=== PATIENT | female | born 1950 | race Caucasian/White ===

== ENCOUNTER → 2017-01-14 | Outpatient (REF) | payer OTHER ==
[2017-01-14 14:15] LABS: CALCIUM OXALATE CRYSTALS MODERATE
== END ==
LOC: M SMT 12:45
PROVIDERS: ATTEND Nurse Practitioner Women's Health
DX: N39.46 Mixed incontinence (principal)

== ENCOUNTER → 2017-02-17 | Outpatient (REF) | payer MEDICARE, OTHER ==
[2017-02-17 14:26] LABS: CALCIUM OXALATE CRYSTALS LARGE
== END ==
LOC: M SMT 13:50
PROVIDERS: ATTEND Nurse Practitioner Women's Health
DX: N39.46 Mixed incontinence (principal)
CPT/HCPCS: 81001; 87086; G0463

== ENCOUNTER → 2021-12-07 | Outpatient (REF) | payer OTHER ==
[2021-12-07 19:40] LABS: BACTERIA, URINE NONE SEEN; CALCIUM OXALATE CRYSTALS,URINE LARGE AMOUNT /hpf; HYALINE CAST, URINE NONE SEEN /lpf (0-1); RBC, URINE NONE SEEN /hpf (0-3); SQUAMOUS EPITHELIAL CELL URINE SMALL AMOUNT /hpf (SMALL AMT); URIC ACID CRYSTALS, URINE LARGE AMOUNT /hpf; WBC, URINE NONE SEEN /hpf (0-3)
== END ==
LOC: M SMT 18:08
PROVIDERS: ATTEND Specialist
DX: R39.15 Urgency of urination (principal)